=== PATIENT | male | born 1975 | race American Indian/Alaskan Native ===

== ENCOUNTER 2020-05-16 20:00 | Emergency (ER) | payer SELFPAY ==
[2020-05-16 20:40] VITALS: BP 131/94
--- NOTE | 2020-05-16 21:24 | Emergency Department Report ---
ED Laceration HPI - HPI Chief Complaint: Laceration/Recheck/Suture Stated Complaint: STITCHES REMOVAL Time Seen by Provider: 05/16/20 21:05 Other History: 44-year-old -Thai male patient presents for suture removal today. Patient was seen here in ED for a seizure and laceration on 05/09/2020. He denies any increased pain, swelling, redness, or purulent drainage from his wounds patient also denies any fever. ED Review of Systems ROS: Stated complaint: STITCHES REMOVAL Other details as noted in HPI Constitutional: denies: chills, fever, malaise, weakness Skin: denies: rash, lesions Neurological: denies: headache ED Past Medical Hx - Past Medical History Previous Medical History?: Yes Hx Hypertension: Yes Hx Heart Attack/AMI: Yes (pt states "mild heart attack" 1997) Hx Diabetes: No Hx Arthritis: Yes Hx Seizures: Yes - Surgical History Additional Surgical History: rt knee - Social History Smoking Status: Never Smoker Substance Use Type: None - Medications Home Medications: Home Medications Medication Instructions Recorded Confirmed Last Taken Type Magnesium Oxide [Magnesium] 400 mg PO BID 30 Days tablet 02/01/16 05/09/20 Unknown Rx Potassium Chloride [K-Dur] 20 meq PO QDAY 7 Days tablet 02/01/16 05/09/20 Unknown Rx Folic Acid [Folvite] 1 mg PO QDAY 30 Days tablet 08/13/17 05/09/20 Unknown Rx LORazepam [Ativan] 1 mg PO QHS 3 Days tab 08/13/17 05/09/20 Unknown Rx Thiamine [Vitamin B-1] 100 mg PO DAILY 30 Days tablet 08/13/17 05/09/20 Unknown Rx chlordiazePOXIDE [Librium] 25 mg PO Q6H PRN #20 capsule 08/13/17 05/09/20 Unknown Rx Citalopram [Celexa] 20 mg PO DAILY #30 05/09/20 Unknown Rx amLODIPine 5 mg PO QDAY 90 Days tablet 05/09/20 Unknown Rx carvediloL [Coreg] 6.25 mg PO BID 90 Days tablet 05/09/20 Unknown Rx levETIRAcetam [Keppra TAB] 750 mg PO BID #60 tablet 05/09/20 Unknown Rx Laceration Physical Exam - Exam General: Vital signs noted. No distress. Alert and acting appropriately. 5 Prolene sutures noted to right side of face just above the lip. No erythema, purulent drainage, swelling, or tenderness to palpation noted. 5 simple sutures were removed without difficulty. Patient tolerated procedure well. No bleeding occurred. Laceration Exam: Yes Normal Distal CMS, No Foreign Body, No Exposed Tendon, Vessel, or Nerve, No Tendon Injury ED Course Vital Signs 05/16/20 20:39 Temperature 97.5 F L Pulse Rate 65 Respiratory 20 Rate Blood Pressure 131/94 O2 Sat by Pulse 98 Oximetry ED Medical Decision Making - Medical Decision Making Patient here for suture removal. He denies any signs or symptoms of infection. No signs of infection noted on exam. Sutures removed without difficulty. Patient tolerated procedure well. His vitals are normal he is well-appearing and stable for discharge home. Patient to follow-up with his primary care provider as needed Critical care attestation.: If time is entered above; I have spent that time in minutes in the direct care of this critically ill patient, excluding procedure time. ED Disposition Clinical Impression: Visit for suture removal Disposition: DC-01 TO HOME OR SELFCARE Is pt being admited?: No Condition: Stable Instructions: Suture Care (ED) Referrals: PRIMARY CARE, [Referring] - 3-5 Days ED Physical Exam - General Limitations: No Limitations General appearance: alert, in no apparent distress - Eye Eye exam: Present: normal appearance. Absent: scleral icterus - Respiratory Respiratory exam: Absent: respiratory distress - Cardiovascular Cardiovascular Exam: Present: regular rate - Neurological Exam Neurological exam: Present: alert, oriented X3 - Psychiatric Psychiatric exam: Present: normal affect, normal mood - Skin Skin exam: Present: warm, dry, intact, normal color. Absent: rash
== END 2020-05-16 21:15 | disposition home or self-care (01) ==
LOC: ED 20:00
DX: S01.511D Laceration without foreign body of lip, subsequent encounter (principal); I25.2 Old myocardial infarction; I10 Essential (primary) hypertension; M19.90 Unspecified osteoarthritis, unspecified site; Z86.69 Personal history of other diseases of the nervous system and sense organs; Z98.890 Other specified postprocedural states; Z79.899 Other long term (current) drug therapy; X58.XXXD Exposure to other specified factors, subsequent encounter